=== PATIENT | female | born 1985 | race Caucasian/White ===

== ENCOUNTER 2016-09-03 18:58 | Emergency (ER) | payer OTHER ==
--- NOTE | ~2016-09-03 | CR93 ---
[facility]. [facility] A Service of [facility] & [facility] RADIOLOGY TEXT RESULTS PATIENT: AMI CHRIS LOCATION: SED : 89 UNIT #: [id number] AGE: [address]: lFip Payan DO SEX: F ORDER DR: [id number] [place] [id number] E MR#: [id number] Acc #: [id number] NAME: AMI CHRIS : 1985 SEX: F STUDY DATE/TIME: 09/03/2016 20:59 UNIT: SED ROOM: STUDY DESCRIPTION: CR Elbow Min 3 Views Lt Attending Physician: Flip Payan Ordering Physician: Flip Payan Primary Care Physician: Elsie Primary Care Physician MEDICAL IMAGING REPORT This report is preliminary unless electronic signature is present. EXAM Left elbow 3 views HISTORY Elbow pain and bruising and swelling for 1 day after spider bite. FINDINGS Three views left elbow demonstrate normal bone alignment. No fracture, joint space narrowing or dislocation or effusion. Moderately severe soft tissue swelling over the posterior elbow and posterior margin of the proximal forearm. IMPRESSION 1. No fracture. Satisfactory bone alignment. 2. Soft tissue swelling about the posterior elbow and proximal forearm. Dictated by... Randell Cote M.D. THIS IS AN ELECTRONICALLY VERIFIED REPORT Randell Cote M.D. at 09/06/2016 10:19 AM MILY/alexandra TD: 09/04/2016 03:01 JOB #: [id number] MEDICAL IMAGING REPORT Page 1 of 1
[~2016-09-03 18:58] MED LIST: BIRTH CONTROL PILL PO; CIPRO PO; FLEXERIL PO; IBUPROFEN PO; MEDROL PO; PHENERGAN PO
[2016-09-03] MEDS ORDERED: NO MEDICATIONS (19:03)
[2016-09-03 19:32] LABS: BASOPHIL# 0.1 X10e3 (0-0.3); BASOPHIL% 0.4 % (0-2.5); EOSINOPHIL% 0.2 % (0.0-7.0); HEMATOCRIT 39.7 % (35.0-45.0); HEMOGLOBIN 13.4 gm/dL (12.0-16.0); LYMPHOCYTE# 1.4 X10e3 (1.0-3.5); LYMPHOCYTE% 6.8 % (17.0-45.0); MEAN CELL VOLUME 93.4 FL (83-96); MEAN CORPUSCULAR HEMOGLOBIN 31.7 PG (28-34); MEAN CORPUSCULAR HGB CONC 33.9 g/dL (30-36); MONOCYTE% 9.4 % (3.0-12.0); NEUTROPHIL# 17.3 X10e3 (1.5-7.1); NEUTROPHIL% 83.2 % (40-75); PLATELET COUNT 263 X10e3 (140-420); RED BLOOD COUNT 4.25 X10e (3.90-5.30); RED CELL DISTRIBUTION WIDTH 12.9 % (11.0-15.5); WHITE BLOOD COUNT 20.8 X10e3 (4.0-10.5)
[2016-09-03 19:36] LABS: DIFF IND YES
[2016-09-03 19:50] LABS: PLATELET ESTIMATE NORMAL (NORMAL)
[2016-09-03 19:51] LABS: ALBUMIN SERUM 4.2 g/dL (3.5-5.0); BILIRUBIN, DIRECT 0.1 mg/dL (0.0-0.2); BILIRUBIN,INDIRECT 0.6 mg/dL (0.0-0.9); BILIRUBIN,TOTAL 0.7 mg/dL (0.2-2.0); BUN/CREATININE RATIO 17.5; CALCIUM SERUM 8.9 mg/dL (8.4-10.2); CREATININE SERUM 0.8 mg/dL (0.6-1.4); GLOM FILT RATE Estimated 100.4 mL/min (>60); POTASSIUM 3.1 mmol/L (3.5-5.1); PROTEIN TOTAL SERUM 8.1 g/dL (6.0-8.3); RBC NORMAL YES
[2016-09-03 21:15] LABS: URINE SOURCE CLEAN CATCH
[2016-09-03 21:19] LABS: URINE APPEARANCE CLEAR; URINE BILIRUBIN NEG (NEG); URINE BLOOD NEG (NEG); URINE COLOR YELLOW; URINE GLUCOSE NEG (NORM); URINE KETONE NEG (NEG); URINE LEUKOCYTE ESTERASE NEG (NEG); URINE NITRATE NEG (NEG); URINE PROTEIN 1+ (NEG); URINE SPECIFIC GRAVITY 1.025 (1.003-1.035); URINE UROBILINOGEN 0.2 MG/DL (NORM)
[2016-09-03 21:20] LABS: MICRO INDICATED? YES
[2016-09-03 21:24] LABS: CULTURE INDICATED? NO; URINE BACTERIA NEG (NEG); URINE RBC 0-2 /[HPF] (0-2)
[2016-09-03 21:25] LABS: URINE MUCUS PRESENT; URINE SQUAMOUS EPITHELIAL CELL OCCAS /[HPF]
[2016-09-03 21:28] LABS: AMPHETAMINE POS (NEG); BARBITURATES NEG (NEG); BENZODIAZEPINES POS (NEG); COCAINE NEG (NEG); MARIJUANA POS (NEG); OPIATES POS (NEG); TRICYCLIC ANTIDEPRESSANTS NEG (NEG); U METHADONE NEG (NEG)
== END 2016-09-04 00:23 ==
LOC: SED 18:58
PROVIDERS: Emergency Medicine
DX: L03.114 Cellulitis of left upper limb (principal); F19.10 Other psychoactive substance abuse, uncomplicated; F17.200 Nicotine dependence, unspecified, uncomplicated; Z23 Encounter for immunization
CPT/HCPCS: 36415; 73080; 80048; 80076; 80307; 81003; 83605; 84703; 85025; 87040; 90471; 90715; 96361; 96365; 96375; 96376; 99284; 99285; J1170; J2405; J2543